=== PATIENT | female | born 1970 | race Caucasian/White ===

== ENCOUNTER 2016-12-08 17:10 | Emergency (ER) | payer OTHER ==
[~2016-12-08] VITALS: Ht 176.5 cm; Wt 78.1 kg
[~2016-12-08 17:10] MED LIST: IBUP600T44 PO; OXYC-57 PO; [UNRECOGNIZED DRUG - OTHER]
[2016-12-08 17:17] VITALS: TEMP 36.7; Ht 176.5 cm; Wt 78.1 kg
[2016-12-08] MEDS ORDERED: SODIUM CHLORIDE 0.9% 1000ML 1,000 ML IV STA (17:59)
[2016-12-08] MEDS ORDERED: OPTIRAY 320 IV PRN (18:15)
[2016-12-08 18:28] LABS: BASO % 0.3 %; BASO ABS # 0.02 K/uL (0-0.2); COMPLETE YES; HEMATOCRIT 40.6 % (37-47); IG% 0.3 %; LYMPH % 17.8 %; LYMPH ABS # 1.35 K/uL (1.2-3.4); MEAN CELL VOLUME 83.4 fL (80-100); MEAN CORPUSCULAR HEMOGLOBIN 28.1 pg (25-34); MEAN CORPUSCULAR HGB CONC 33.7 g/dl (32-36); MEAN PLATELET VOLUME 10.2 fL (7.4-10.4); NEUT % 71.6 %; PLATELET COUNT 208 K/uL (130-400); RED BLOOD COUNT 4.87 M/uL (4.2-5.4); WHITE BLOOD COUNT 7.59 K/uL (4.8-10.8)
[2016-12-08 18:45] LABS: BUN/CREATININE RATIO 9.9 (10-20); CALCIUM 8.9 mg/dl (8.5-10.1); CREATININE 0.87 mg/dl (0.60-1.20); POTASSIUM 3.5 mmol/L (3.5-5.1)
[2016-12-08 19:09] LABS: URINE APPEARANCE CLEAR (CLEAR); URINE BILIRUBIN NEG (NEG); URINE COLOR YELLOW; URINE NITRITE NEG (NEG); URINE PH 5.5 (4.5-7.5); URINE SPECIFIC GRAVITY 1.021 (1.000-1.030); UROBILINOGEN NEG (NEG)
[2016-12-08 19:16] LABS: MANUAL MICROSCOPIC REQUIRED? NO; REVIEW REQ? YES
--- NOTE | 2016-12-08 20:42 | DIAGNOSTIC IMAGING REPORT ---
ABDOMINAL ULTRASOUND, RIGHT LOWER QUADRANT HISTORY: Right upper quadrant ultrasound ABDOMINAL PAIN. COMPARISON: None. FINDINGS: The appendix is not identified. IMPRESSION: Nonvisualization of the appendix Electronically signed by: Juinor Blas M.D. 12/08/2016 8:41 PM Dictated Date/Time: 12/08/2016 8:38 PM
--- NOTE | 2016-12-08 20:45 | DIAGNOSTIC IMAGING REPORT ---
EXAMINATION: PELVIC ULTRASOUND CLINICAL HISTORY: SP partial hyster; eval ovaries COMPARISON STUDY: None FINDINGS: The uterus measured surgically absent. The endometrial stripe measured surgically absent. The right ovary measured 2.7 cm with normal vascular flow. The left ovary measured 3.5 cm with normal vascular flow. 1.4 cm complex cyst.. There is no ultrasonographic evidence of ovarian torsion. It should be noted that ovarian torsion can be present with normal Doppler ultrasonographic findings. Possible small residual component of the uterus adjacent to the internal cervical os. IMPRESSION: 1. 1.4 cm complex left ovarian cyst. Otherwise negative study status post partial hysterectomy. 2. note is made of a possible 2 cm soft tissue density slightly to the right of midline. Diagnostic considerations include bowel content, versus the less likely possibility of endometrioma. Electronically signed by: Junior Blas M.D. 12/08/2016 8:43 PM Dictated Date/Time: 12/08/2016 8:41 PM
--- NOTE | 2016-12-08 21:15 | DIAGNOSTIC IMAGING REPORT ---
ADDENDUM Report should indicate small bilateral complex ovarian cysts Electronically signed by: Junior Blas M.D. 12/08/2016 9:32 PM Dictated Date/Time: 12/08/2016 9:32 PM ORIGINAL REPORT ABDOMEN AND PELVIS CT WITH IV AND ORAL CONTRAST CT DOSE: 463.41 mGy.cm HISTORY: Pelvic pain ABDOMINAL PAIN/GI TECHNIQUE: Multiaxial CT images of the abdomen and pelvis were performed following the use of intravenous and oral contrast. COMPARISON STUDY: None. FINDINGS: Lung bases are clear. Liver spleen and pancreas are unremarkable. Kidneys enhance uniformly. Bowel pattern within the abdomen is nonobstructive. The appendix is identified and appears to be normal. Patient is status post hysterectomy. As 1.5 cm right ovarian cyst. No additional mass or collection is seen. The ultrasound finding in the midline appears to be artifactual. IMPRESSION: 1. 1.5 cm right ovarian cyst. 2. Normal appendix. 3. Study abdomen and pelvis is otherwise negative status post partial hysterectomy. Electronically signed by: Junior Blas M.D. 12/08/2016 9:14 PM Dictated Date/Time: 12/08/2016 9:11 PM
[2016-12-08 21:46] VITALS: BP 113/63; PULSE 46; O2SAT 98
--- NOTE | 2016-12-09 02:54 | EMERGENCY ROOM VISIT NOTE ---
ED Visit Note First contact with patient: 17:21 Chief Complaint: Abdominal pain. History of Present Illness: Ms. Mota is a 46 year-old white female who ambulates into the ED accompanied by her complaining of right lower quadrant abdominal pain. Historically patient reports she has no significant gastrointestinal disorders and is status post partial hysterectomy. Patient reports over the last 2 years she has been experiencing right lower quadrant pain every 1-2 months. Usually this pain is mild in intensity and self resolves. She reports she's had a previous CT of her abdomen and there was no appendicitis and no cause for her pain was found. Currently patient reports her pain started approximately 2 days ago. Since that time it has waxed and waned in intensity but it has been much more severe than previous episodes. She describes her pain as a sharp sensation and reports at its worse her discomfort was 8/10 and currently it is 5/10. Her pain intermittently radiates across the suprapubic area and into the left lower quadrant. She has not identified any aggravating or alleviating factors related to the pain. She has not taken any medications for pain prior to arrival at the hospital. Associated with her pain she reports she has been nauseated but has not vomited and she has had a decreased appetite. Patient denies fevers, chills, sweats, skin eruptions, skin color changes, upper respiratory tract symptoms, shortness of breath, chest pain, diarrhea, constipation, rectal bleeding, black/tarry stools, urinary symptoms, hematuria, vaginal bleeding, vaginal discharge, back/flank pain. Review of Systems: As noted above in history of present illness. All body systems were reviewed and found to be negative as noted above. Past Medical History: As previously noted and laminectomy. Current Medications: Patient denies. Allergies to Medications: Penicillin. Social History: Patient is currently employed; she lives and feels safe in her home environment; she denies tobacco use and admits to alcohol use. Physical Examination: Vital Signs: Date Time Temp Pulse Resp B/P (MAP) Pulse Ox O2 Delivery O2 Flow Rate FiO2 12/08/16 21:46 46 16 113/63 98 Room Air 12/08/16 20:23 46 16 95/61 99 Room Air 12/08/16 18:52 51 16 95/64 100 Room Air 12/08/16 17:17 36.7 97 18 128/81 95 Room Air GENERAL: 46-year-old female in mild distress due to pain, nontoxic-appearing, afebrile and hemodynamically stable. NEUROLOGICAL: Awake, alert and oriented to person, place and time. Answering questions appropriately and following commands. Normal gait. Good hand eye coordination. SKIN: Warm, dry and pink. No soft tissue eruptions or trauma noted. HEENT: Atraumatic and normocephalic. PERRL. Sclera white and conjunctiva pink. Oral cavity moist and pink. Pharynx is nonerythematous or edematous. Speech normal. No lymphadenopathy. Trachea midline. No jugular venous distention. BACK: No tenderness over the bony spine. No CVA tenderness. THORAX: Lungs sounds are clear to auscultation and equal bilaterally with symmetrical chest wall. No wheezing, rales or rhonchi. No crepitus, tenderness , subcutaneous air or deformities noted. HEART: Regular rate and rhythm. No gallops, rubs or murmurs are appreciated. ABDOMEN: Flat, soft with mild tenderness just inferior to McBurney's point. Positive bowel sounds in all quadrants. No guarding, rigidity or organomegaly. EXTREMITIES: Moves all extremities well on command and with purpose. All distal neurovascular statuses are intact and equal bilaterally. ED Course: Patient is assessed as noted above. Patient's medication list was reviewed. Laboratory Testing: Test 12/08/16 18:10 12/08/16 18:40 Range/Units White Blood Count 7.59 4.8-10.8 K/uL Red Blood Count 4.87 4.2-5.4 M/uL Hemoglobin 13.7 12.0-16.0 g/dL Hematocrit 40.6 37-47 % Mean Corpuscular Volume 83.4 80-100 fL Mean Corpuscular Hemoglobin 28.1 25-34 pg Mean Corpuscular Hemoglobin Concent 33.7 32-36 g/dl Platelet Count 208 130-400 K/uL Mean Platelet Volume 10.2 7.4-10.4 fL Neutrophils (%) (Auto) 71.6 % Lymphocytes (%) (Auto) 17.8 % Monocytes (%) (Auto) 8.0 % Eosinophils (%) (Auto) 2.0 % Basophils (%) (Auto) 0.3 % Neutrophils # (Auto) 5.44 1.4-6.5 K/uL Lymphocytes # (Auto) 1.35 1.2-3.4 K/uL Monocytes # (Auto) 0.61 0.11-0.59 K/uL Eosinophils # (Auto) 0.15 0-0.5 K/uL Basophils # (Auto) 0.02 0-0.2 K/uL RDW Standard Deviation 38.2 36.4-46.3 fL RDW Coefficient of Variation 12.6 11.5-14.5 % Immature Granulocyte % (Auto) 0.3 % Immature Granulocyte # (Auto) 0.02 0.00-0.02 K/uL Sodium Level 140 136-145 mmol/L Potassium Level 3.5 3.5-5.1 mmol/L Chloride Level 106 98-107 mmol/L Carbon Dioxide Level 24 21-32 mmol/L Anion Gap 10.0 3-11 mmol/L Blood Urea Nitrogen 9 7-18 mg/dl Creatinine 0.87 0.60-1.20 mg/dl Est Creatinine Clear Calc Drug Dose 85.0 ml/min Estimated GFR () 91.9 Estimated GFR (Non- 79.3 BUN/Creatinine Ratio 9.9 10-20 Random Glucose 91 70-99 mg/dl Calcium Level 8.9 8.5-10.1 mg/dl Total Bilirubin 0.6 0.2-1 mg/dl Direct Bilirubin 0.1 0-0.2 mg/dl Aspartate Amino Transf (AST/SGOT) 25 15-37 U/L Alanine Aminotransferase (ALT/SGPT) 24 12-78 U/L Alkaline Phosphatase 40 45-117 U/L Total Protein 7.0 6.4-8.2 gm/dl Albumin 4.0 3.4-5.0 gm/dl Lipase 193 73-393 U/L Urine Color YELLOW Urine Appearance CLEAR CLEAR Urine pH 5.5 4.5-7.5 Urine Specific [place] 1.021 1.000-1.030 Urine Protein NEG NEG Urine Glucose (UA) NEG NEG Urine Ketones 1+ NEG Urine Occult Blood 1+ NEG Urine Nitrite NEG NEG Urine Bilirubin NEG NEG Urine Urobilinogen NEG NEG Urine Leukocyte Esterase NEG NEG Urine WBC (Auto) 1-5 0-5 /hpf Urine RBC (Auto) 0-4 0-4 /hpf Urine Hyaline Casts (Auto) 1-5 0-5 /lpf Urine Epithelial Cells (Auto) 10-20 0-5 /lpf Urine Bacteria (Auto) NEG NEG Urine Crystals CALCIUM OXALATE NONE PRSENT Pelvic Ultrasound: Was reviewed by myself and read by the radiologist showing a 1.4 cm complex left ovarian cyst, status post partial hysterectomy, 2 cm soft tissue density slightly right of midline of questionable etiology including bowel content versus endometrioma. Appendix Ultrasound: Was reviewed by myself and read by the radiologist showing no visible appendix. Abdominal/Pelvic Contrast CT: Was reviewed by myself and read by the radiologist shows bilateral complex ovarian cysts, normal-appearing lung bases, spleen, liver, pancreas, kidneys, bowel and appendix. Radiologist note the possible mass from the ultrasound appeared to be stool in the colon. Patient was hydrated with normal saline; patient was offered pain medications and refused. Patient was reassessed multiple times during her stay in the emergency department. Patient's case was reviewed with Dr. Michelle; we agreed on diagnostic approach , treatment, disposition and plan. Patient was educated about today's findings and instructed on her treatment plan ; she verbalized understanding and agreement with this plan. Clinical Impression: Right lower quadrant abdominal pain. Decision-Making: Initially my differential diagnosis I considered appendicitis, ovarian cyst rupture, ovarian torsion, kidney stone, constipation, and other causes. Disposition: Patient discharged home in stable condition accompanied by her ; prior to departure she was reassessed and subjectively reported she was feeling better and rated her discomfort 2/10. Plan: Patient was encouraged to alternate ibuprofen and acetaminophen every 3 hours as needed for pain per Patient was encouraged to contact her PCP tomorrow and request follow-up care and treatment. Patient was encouraged return the ED for worsening/uncontrolled pain, fevers, vomiting or any new/concerning symptoms.
== END 2016-12-08 21:55 | disposition home or self-care (01) ==
LOC: C.EDB 17:11
DX: R10.31 Right lower quadrant pain (principal); Z90.711 Acquired absence of uterus with remaining cervical stump; Z98.890 Other specified postprocedural states; N83.201 Unspecified ovarian cyst, right side; N83.202 Unspecified ovarian cyst, left side

== ENCOUNTER → 2017-03-07 | Outpatient (CLI) | payer OTHER ==
--- NOTE | 2017-03-10 13:33 | MAMMOGRAPHY REPORT ---
BILATERAL DIGITAL SCREENING MAMMOGRAM TOMOSYNTHESIS WITH CAD: 03/07/2017 CLINICAL HISTORY: Routine screening. The patient reported to the technologist that she has had diffu se bilateral breast tenderness for approximately 2 weeks. TECHNIQUE: Breast tomosynthesis in addition to standard 2D mammography was performed. Current study was also evaluated with a Computer Aided Detection (CAD) system. COMPARISON: Comparison is made to exams dated: 08/10/2015 mammogram, 03/31/2015 mammogram, 12/08/2013 mammogram, 11/11/2012 mammogram, 07/08/2011 mammogram, and 06/25/2010 mammogram - [facility]. BREAST COMPOSITION: The tissue of both breasts is extremely dense, which lowers the sensitivity of m ammography. FINDINGS: There is a possible small cluster of calcifications within the left lower inner quadrant m iddle depth, for which spot magnification views are recommended for further evaluation. Additionally , there is an oval circumscribed 15 mm mass within the left upper outer quadrant, which likely repres ents a cyst although ultrasound is recommended for further evaluation. The remainder of both breasts are stable compared to prior exams, without suspicious masses, calcific ations, or areas of architectural distortion noted. IMPRESSION: ACR BI-RADS CATEGORY 0: INCOMPLETE EVALUATION: NEED ADDITIONAL IMAGING EVALUATION 1. Left breast calcifications and left breast mass, for which additional imaging evaluation is recomm ended. 2. The patient also reported diffuse bilateral breast tenderness for 2 weeks. Recommend clinical fo llow-up. The patient will be called to schedule an appointment. Approximately 10% of breast cancers are not detected with mammography. A negative mammographic report should not delay biopsy if a clinically suggestive mass is present. Sarahy Santos M.D. ah/:03/07/2017 17:08:14 Hide Inspector: Perla LARA(Zohra)(M), [facility] letter sent: Addl Imaging 0 BI-RADS Code: ACR BI-RADS Category 0: Incomplete Evaluation: Need Additional Imaging Evaluation
== END | disposition home or self-care (01) ==
LOC: C.MAMM 07:26
PROVIDERS: ATTEND Obstetrics & Gynecology
DX: Z12.31 Encounter for screening mammogram for malignant neoplasm of breast (principal); R92.1 Mammographic calcification found on diagnostic imaging of breast; N63 Unspecified lump in breast; N64.4 Mastodynia

== ENCOUNTER → 2017-03-14 | Outpatient (CLI) | payer OTHER ==
--- NOTE | 2017-03-14 14:55 | MAMMOGRAPHY REPORT ---
UNILATERAL LEFT DIGITAL DIAGNOSTIC MAMMOGRAM AND TARGETED LEFT ULTRASOUND: 03/14/2017 CLINICAL HISTORY: Callback from screening mammogram for left breast calcifications and left breast ma ss. TECHNIQUE: Spot magnification left CC and ML views were obtained. COMPARISON: Comparison is made to exams dated: 03/07/2017 mammogram, 08/10/2015 mammogram, 03/31/2015 mammogram, 12/08/2013 mammogram, 11/11/2012 mammogram, and 07/08/2011 mammogram - [facility]. BREAST COMPOSITION: The tissue of the left breast is extremely dense, which lowers the sensitivity o f mammography. FINDINGS: Spot magnification views of the left breast demonstrate a small 2 mm cluster of calcificat ions in the left lower inner quadrant. The calcifications are mildly heterogeneous in morphology and appear new compared to prior exams. Given that the calcifications are new, they are indeterminant a nd stereotactic biopsy is recommended for further evaluation. Targeted ultrasound was performed of the area of the circumscribed mass seen on the recent screening mammogram. In the left breast at 1:00 periareolar region, there is an oval anechoic circumscribed ma ss which measures 1.2 x 1.1 x 0.9 cm. This corresponds with the circumscribed mammographic mass and is consistent with a benign cyst. IMPRESSION: ACR BI-RADS CATEGORY 4: SUSPICIOUS, TARGETED ULTRASOUND ACR BI-RADS CATEGORY 4: SUSPICIO US 1. New small 2 mm cluster of calcifications in the left lower inner quadrant. The calcifications ar e indeterminate and stereotactic biopsy is recommended for further evaluation. 2. Benign 1.2 cm cyst in the left 1:00 breast on ultrasound, which corresponds with a circumscribed mammographic mass. A phone call was made to the physician's office to confirm faxed results were received. The patient has been verbally notified of the results. She tentatively scheduled the biopsy before leaving the [facility]. Approximately 10% of breast cancers are not detected with mammography. A negative mammographic report should not delay biopsy if a clinically suggestive mass is present. Sarahy Santos M.D. /:03/14/2017 09:50:17 Library Technology Instructor: Alba LARA(Zohra)([place]), [facility] letter sent: Abnormal 4/5 BI-RADS Code: ACR BI-RADS Category 4: Suspicious Ultrasound BI-RADS: ACR BI-RADS Category 4: Suspici ous
== END | disposition home or self-care (01) ==
LOC: C.MAMM 09:08
PROVIDERS: ATTEND Obstetrics & Gynecology
DX: R92.0 Mammographic microcalcification found on diagnostic imaging of breast (principal); N60.02 Solitary cyst of left breast

== ENCOUNTER → 2017-04-09 | Outpatient (CLI) | payer OTHER ==
--- NOTE | 2017-04-09 09:42 | Discharge Instructions ---
Discharge Instructions Procedure Procedure Date: Apr 09, 2017. Reason for visit: Left Calcifications. Discharge Discharge Date: Apr 09, 2017. Discharge Diagnosis: status post breast biopsy Instructions Activity Recommendations: Additional Limitations (see below) Return to School/Work: no limitations Recommended Home Diet: No Limitations Provider Instructions: ACTIVITY RECOMMENDATIONS: * No lifting, pushing, pulling or exercising the affected side for three days. RETURN TO SCHOOL/WORK: * You may return to work/school after the procedure, but do not perform any strenuous activities for 24 to 48 hours. MEDICATIONS: * Tylenol (two 325 mg) every four to six hours if needed for mild pain (if not allergic to Tylenol). DIET: * Resume previous diet. SPECIAL CARE INSTRUCTIONS: * Keep biopsy site dry for 24 hours. May shower after 24 hours, but do not soak (bathe) incision. * May remove Tegaderm (plastic patch) tomorrow AFTER showering. * Leave the steri-strips on for one week. Allow the steri-strips to fall off by themselves. If not off after one week, you may remove them. You may place a Bandaid crosswise over the strips, if desired. * Apply ice 10 minutes on and 10 minutes off as needed. * Wear a bra at bedtime to sleep more comfortably for 2-3 days. * Your referring physician should have the results after approximately 5 to 7 business days. * Call for unusual bleeding, fever, drainage, etc or if you have any questions call during normal business hours or after hours call Dr Santos, . FOLLOW UP VISIT: Follow-up with Referring Physician as scheduled. Allergies Coded Allergies: Penicillins (Verified Allergy, Unknown, *, 12/08/16) CHILDHOOD REACTION UNKNOWN [facility] Recommendations: Call your doctor if: * Temperature above 101 degrees * Pain not relieved by pain medicine ordered * There is increased drainage or redness from any incision * You have any unanswered questions or concerns. Your Doctors Instructions noted above were prepared by provider Sarahy Santos. Patient Signature Section: Patient Instructions Signature Page Jenna Mota Patient (or Guardian) Signature/Date: I have read and understand the instructions given to me by my caregivers. Caregiver/RN/Doctor Signature/Date: The above-named patient and/or guardian has received patient instructions on this date. + Original Patient Signature Page (only) stays with chart. Please make copy for patient.
--- NOTE | 2017-04-09 09:44 | Discharge Instructions ---
Discharge Instructions Procedure Procedure Date: Apr 09, 2017. Reason for visit: Left Calcifications. Discharge Discharge Date: Apr 09, 2017. Discharge Diagnosis: status post breast biopsy Instructions Activity Recommendations: Additional Limitations (see below) Return to School/Work: no limitations Recommended Home Diet: No Limitations Provider Instructions: ACTIVITY RECOMMENDATIONS: * No lifting, pushing, pulling or exercising the affected side for three days. RETURN TO SCHOOL/WORK: * You may return to work/school after the procedure, but do not perform any strenuous activities for 24 to 48 hours. MEDICATIONS: * Tylenol (two 325 mg) every four to six hours if needed for mild pain (if not allergic to Tylenol). DIET: * Resume previous diet. SPECIAL CARE INSTRUCTIONS: * Keep biopsy site dry for 24 hours. May shower after 24 hours, but do not soak (bathe) incision. * May remove Tegaderm (plastic patch) tomorrow AFTER showering. * Leave the steri-strips on for one week. Allow the steri-strips to fall off by themselves. If not off after one week, you may remove them. You may place a Bandaid crosswise over the strips, if desired. * Apply ice 10 minutes on and 10 minutes off as needed. * Wear a bra at bedtime to sleep more comfortably for 2-3 days. * Your referring physician should have the results after approximately 5 to 7 business days. * Call for unusual bleeding, fever, drainage, etc or if you have any questions call during normal business hours or after hours call Dr Santos, . FOLLOW UP VISIT: Follow-up with Referring Physician as scheduled. Allergies Coded Allergies: Penicillins (Verified Allergy, Unknown, *, 12/08/16) CHILDHOOD REACTION UNKNOWN [facility] Recommendations: Call your doctor if: * Temperature above 101 degrees * Pain not relieved by pain medicine ordered * There is increased drainage or redness from any incision * You have any unanswered questions or concerns. Your Doctors Instructions noted above were prepared by provider Sarahy Santos. Patient Signature Section: Patient Instructions Signature Page Jenna Mota Patient (or Guardian) Signature/Date: I have read and understand the instructions given to me by my caregivers. Caregiver/RN/Doctor Signature/Date: The above-named patient and/or guardian has received patient instructions on this date. + Original Patient Signature Page (only) stays with chart. Please make copy for patient.
--- NOTE | 2017-04-09 14:23 | MAMMOGRAPHY REPORT ---
STEREOTACTIC GUIDED BIOPSY LEFT BREAST: 04/09/2017 CLINICAL HISTORY: Indeterminate calcifications in the left lower inner quadrant. PATIENT CONSENT: The procedure, risks, benefits, and alternatives of stereotactic biopsy with clip pl acement were discussed with the patient, and verbal and written consent was obtained. A timeout was performed immediately prior to the procedure. PROCEDURE DESCRIPTION: With stereotactic guidance, aseptic technique, and lidocaine as a local anesth etic (1% lidocaine to anesthetize the skin and 1% lidocaine with epinephrine to anesthetize the deepe r tissues), the calcifications of concern in the left lower inner quadrant were sampled multiple time s with a 9-gauge vacuum-assisted biopsy needle (Adrenaline Mobility). The path of approach was caudocranial. The specimen radiograph demonstrates calcifications to be present in the samples. A metallic marke r clip was placed at the biopsy site. This was confirmed on postprocedure mammograms. Direct pressu re was applied at the biopsy site and hemostasis was readily achieved. The patient tolerated the pro cedure without complication. She was given wound care instructions. COMPARISON: Comparison is made to exams dated: 03/14/2017 ultrasound, 03/14/2017 mammogram, 08/10/2015 ultrasound, and 08/10/2015 mammogram - [facility]. IMPRESSION: STEREOTACTIC GUIDED BIOPSY Stereotactic biopsy of indeterminate calcifications in the left lower inner quadrant, with clip place ment. The patient will receive pathology results from her referring provider. Sarahy Santos M.D. /:04/09/2017 09:43:34 Boathouse Keeper: Idalia Carroll, [facility]
--- NOTE | 2017-04-09 14:26 | MAMMOGRAPHY REPORT ---
UNILATERAL LEFT DIGITAL DIAGNOSTIC MAMMOGRAM: 04/09/2017 CLINICAL HISTORY: Status post left breast stereotactic biopsy. TECHNIQUE: Postprocedural left CC and ML views were obtained. COMPARISON: Comparison is made to exams dated: 03/14/2017 ultrasound, 03/14/2017 mammogram, 03/07/2017 mammogram, 08/10/2015 ultrasound, 08/10/2015 mammogram, and 03/31/2015 mammogram - [facility]. BREAST COMPOSITION: The tissue of the left breast is extremely dense, which lowers the sensitivity o f mammography. FINDINGS: A new biopsy marker clip is seen at the site of the biopsied calcifications in the left lo wer inner quadrant. No significant postbiopsy hematoma is seen. IMPRESSION: POST PROCEDURE IMAGING FOR MARKER PLACEMENT New biopsy marker clip status post left breast stereotactic biopsy. Pathology results are pending. Approximately 10% of breast cancers are not detected with mammography. A negative mammographic report should not delay biopsy if a clinically suggestive mass is present. Sarahy Santos M.D. ah/:04/09/2017 09:51:37 Forest Ecologist: Idalia Carroll, [facility] BI-RADS Code: Post Procedure Imaging For Marker Placement
== END | disposition home or self-care (01) ==
LOC: C.MAMM 09:10
PROVIDERS: ATTEND Obstetrics & Gynecology
DX: R92.0 Mammographic microcalcification found on diagnostic imaging of breast (principal); N60.92 Unspecified benign mammary dysplasia of left breast

== ENCOUNTER 2017-05-30 03:33 | Emergency (ER) | payer OTHER ==
[~2017-05-30] VITALS: Ht 175.3 cm; Wt 75.4 kg
[2017-05-30 03:35] VITALS: TEMP 36.6; Ht 175.3 cm; Wt 75.4 kg
[2017-05-30] MEDS ORDERED: SODIUM CHLORIDE 0.9% 500ML 500 ML IV STA (04:00)
[2017-05-30] MEDS ORDERED: KETOROLAC TROMETHAMINE 30 MG/ML VIAL IV STA (04:00)
[2017-05-30] MEDS ORDERED: ONDANSETRON 8 MG/54 ML D5W IV STA (04:00)
[2017-05-30] MEDS ORDERED: ONDANSETRON INJ 8 MG in DEXTROSE 5% 50ML 50 ML IV STA (04:16)
[2017-05-30 04:42] LABS: BASO % 0.2 %; BASO ABS # 0.02 K/uL (0-0.2); COMPLETE YES; EOS % 0.3 %; HEMATOCRIT 37.8 % (37-47); IG% 0.3 %; LYMPH % 7.5 %; LYMPH ABS # 0.86 K/uL (1.2-3.4); MEAN CELL VOLUME 80.9 fL (80-100); MEAN CORPUSCULAR HEMOGLOBIN 28.9 pg (25-34); MEAN CORPUSCULAR HGB CONC 35.7 g/dl (32-36); MONO % 4.9 %; NEUT % 86.8 %; PLATELET COUNT 210 K/uL (130-400); RED BLOOD COUNT 4.67 M/uL (4.2-5.4); WHITE BLOOD COUNT 11.43 K/uL (4.8-10.8)
[2017-05-30 04:51] LABS: BUN/CREATININE RATIO 16.7 (10-20); CALCIUM 8.8 mg/dl (8.5-10.1); CREATININE 0.7 mg/dl (0.60-1.20); POTASSIUM 3.7 mmol/L (3.5-5.1)
[2017-05-30 04:54] LABS: URINE APPEARANCE CLEAR (CLEAR); URINE BILIRUBIN NEG (NEG); URINE COLOR YELLOW; URINE NITRITE NEG (NEG); URINE SPECIFIC GRAVITY 1.021 (1.000-1.030); UROBILINOGEN NEG (NEG); ZZUR CULT IF INDIC CLEAN CATCH NO
[2017-05-30 05:03] LABS: MANUAL MICROSCOPIC REQUIRED? NO; REVIEW REQ? NO
[2017-05-30] MEDS ORDERED: FENTANYL CITRATE INJ 50 MCG/1 ML 2 ML VIAL IV STA (05:22)
--- NOTE | 2017-05-30 05:25 | EMERGENCY ROOM VISIT NOTE ---
History Report prepared by Shayy: Ana Cristina Spear Under the Supervision of: Dr. Kelley Matthews D.O. First contact with patient: 03:42 Chief Complaint: ABDOMINAL PAIN Stated Complaint: LWR RT ABDOMINAL PAIN-PELVIC PAINS History of Present Illness The patient is a 46 year old female who presents to the Emergency Room with complaints of waxing and waning RLQ abdominal pain starting 0 yesterday. She started having some pain 2 days ago. It worsened today around 0. The patient has had 3-4 episodes of this pain in the past. She describes the pain as sharp and severe. The pain is moving lower down into her pelvis. The pain is shooting up her abdomen. She is alternating between feeling hot and cold. She has not checked her temperature. She has been feeling nauseous. She did vomit one time tonight. She did not notice any blood. Her mouth feels dry like she is dehydrated. She denies any vaginal discharge or pain during intercourse. She is unsure of any pattern or triggers to these episodes. She had a normal CT and colonoscopy in the past. Pelvic US showed a cyst on each ovary. She has a history of partial hysterectomy. She denies any other abdominal surgeries. She was told that she might be having gas. She notes she has tried cutting dairy out of her diet. She had some cereal the other morning. She denies any family history of celiac or inflammatory bowel disease. Review of EMR showed a visit the end of November of this year with CAT scan abdomen and pelvis as well as pelvic ultrasound. Source of History: patient Onset: 1829 yesterday Position: abdomen (RLQ) Symptom Intensity: severe Quality: sharp Timing: waxes/wanes Associated Symptoms: + chills, + nausea, + vomiting Note: Pt reports dry mouth, vaginal discharge, pain during intercourse. Review of Systems See HPI for pertinent positives & negatives. A total of 10 systems reviewed and were otherwise negative. Past Medical & Surgical Surgical Problems: (1) S/P partial hysterectomy Family History No pertinent family history stated. Social History Smoking Status: Never Smoker Marital Status: Occupation Status: employed Current/Historical Medications No Active Prescriptions or Reported Meds Allergies Coded Allergies: Penicillins (Verified Allergy, Unknown, *, 05/30/17) CHILDHOOD REACTION UNKNOWN Physical Exam Vital Signs Date Time Temp Pulse Resp B/P (MAP) Pulse Ox O2 Delivery O2 Flow Rate FiO2 05/30/17 07:29 57 16 91/49 97 05/30/17 05:51 51 16 103/69 97 Room Air 05/30/17 03:35 36.6 65 20 169/83 100 Room Air Physical Exam GENERAL: alert, uncomfortable appearing, well nourished, mild distress, non- toxic EYE EXAM: normal conjunctiva, PERRL and EOM's grossly intact OROPHARYNX: no exudate, no erythema, lips, buccal mucosa, and tongue normal and mucous membranes are moist NECK: supple, no nuchal rigidity, no adenopathy, non-tender LUNGS: Clear to auscultation. Normal chest wall mechanics HEART: no murmurs, S1 normal and S2 normal ABDOMEN: abdomen soft, non-tender, normo-active bowel sounds, no masses, no rebound or guarding. BACK: Back is symmetrical on inspection and there is no deformity, no midline tenderness, no CVA tenderness. SKIN: no rashes and no bruising UPPER EXTREMITIES: upper extremities are grossly normal. LOWER EXTREMITIES: No pitting edema. NEURO EXAM: Normal sensorium, cranial nerves II-XII grossly intact, normal speech, no gross weakness of arms, no gross weakness of legs. Medical Decision & Procedures ER Provider Diagnostic Interpretation: Radiology results have been interpreted by the [facility] radiologist and reviewed by me. US Pelvic/Endovag: Hysterectomy. Nonvascular lesion to the right of the cervix measuring about 1.4 cm maximum dimension. Possibly complex nabothian cyst versus other cervical lesion. 2.5 cm complex lesion with possible echogenic polypoid component internally. Measures about 2.5 cm maximum dimension. It appears vascular. Lies to the right of the cervical cuff but does not appear to move with cervix during compressions. Cervical mass is not excluded. Right ovarian cyst measuring about 4.1 cm maximum dimension. Ovarian follicles. Blood flow seen to bilateral ovaries. Laboratory Results 05/30/17 04:00 Red Blood Count 4.67, Mean Corpuscular Volume 80.9, Mean Corpuscular Hemoglobin 28.9, Mean Corpuscular Hemoglobin Concent 35.7, Mean Platelet Volume 10.0, Neutrophils (%) (Auto) 86.8, Lymphocytes (%) (Auto) 7.5, Monocytes (%) (Auto) 4.9, Eosinophils (%) (Auto) 0.3, Basophils (%) (Auto) 0.2, Neutrophils # (Auto) 9.93, Lymphocytes # (Auto) 0.86, Monocytes # (Auto) 0.56, Eosinophils # (Auto) 0.03, Basophils # (Auto) 0.02 05/30/17 04:00 Test 05/30/17 04:00 White Blood Count 11.43 K/uL (4.8-10.8) Red Blood Count 4.67 M/uL (4.2-5.4) Hemoglobin 13.5 g/dL (12.0-16.0) Hematocrit 37.8 % (37-47) Mean Corpuscular Volume 80.9 fL (80-100) Mean Corpuscular Hemoglobin 28.9 pg (25-34) Mean Corpuscular Hemoglobin Concent 35.7 g/dl (32-36) Platelet Count 210 K/uL (130-400) Mean Platelet Volume 10.0 fL (7.4-10.4) Neutrophils (%) (Auto) 86.8 % Lymphocytes (%) (Auto) 7.5 % Monocytes (%) (Auto) 4.9 % Eosinophils (%) (Auto) 0.3 % Basophils (%) (Auto) 0.2 % Neutrophils # (Auto) 9.93 K/uL (1.4-6.5) Lymphocytes # (Auto) 0.86 K/uL (1.2-3.4) Monocytes # (Auto) 0.56 K/uL (0.11-0.59) Eosinophils # (Auto) 0.03 K/uL (0-0.5) Basophils # (Auto) 0.02 K/uL (0-0.2) RDW Standard Deviation 37.2 fL (36.4-46.3) RDW Coefficient of Variation 12.8 % (11.5-14.5) Immature Granulocyte % (Auto) 0.3 % Immature Granulocyte # (Auto) 0.03 K/uL (0.00-0.02) Urine Color YELLOW Urine Appearance CLEAR (CLEAR) Urine pH 7.0 (4.5-7.5) Urine Specific [place] 1.021 (1.000-1.030) Urine Protein NEG (NEG) Urine Glucose (UA) NEG (NEG) Urine Ketones 2+ (NEG) Urine Occult Blood 1+ (NEG) Urine Nitrite NEG (NEG) Urine Bilirubin NEG (NEG) Urine Urobilinogen NEG (NEG) Urine Leukocyte Esterase NEG (NEG) Urine WBC (Auto) 0 /hpf (0-5) Urine RBC (Auto) 5-10 /hpf (0-4) Urine Hyaline Casts (Auto) 1-5 /lpf (0-5) Urine Epithelial Cells (Auto) 10-20 /lpf (0-5) Urine Bacteria (Auto) NEG (NEG) Anion Gap 7.0 mmol/L (3-11) Est Creatinine Clear Calc Drug Dose 103.9 ml/min Estimated GFR () 119.6 Estimated GFR (Non- 103.2 BUN/Creatinine Ratio 16.7 (10-20) Calcium Level 8.8 mg/dl (8.5-10.1) Laboratory results per my review. Medications Administered Medications (Trade) Dose Ordered Sig/Silvio Route Start Time Stop Time Status Last Admin Dose Admin Ketorolac Tromethamine (Toradol Inj) 30 mg NOW STAT IV 05/30/17 04:00 05/30/17 04:01 DC 05/30/17 04:00 30 MG Sodium Chloride 500 ml @ 999 mls/hr Q31M STAT IV 05/30/17 04:00 05/30/17 04:30 DC 05/30/17 04:00 999 MLS/HR Ondansetron HCl (ZOFRAN ODT 4MG Home Pack) 1 homepack UD ONCE PO 05/30/17 07:30 05/30/17 07:31 DC 05/30/17 07:26 1 HOMEPACK ED Course 0342: The patient was evaluated in room B12B. A complete history and physical exam was performed. 0400: NSS 500 ml @ 999 mls/hr IV, Toradol Inj 30 mg IV. 0430: I reevaluated the patient. 0645: Upon reevaluation, the patient is feeling better. I discussed the findings and the treatment plan with the patient. She verbalizes agreement and understanding. She was discharged home. Medical Decision Differential diagnoses includes but is not limited to gastritis, peptic ulcer disease, GERD, gallbladder disease, pancreatitis, small bowel obstruction, acute coronary syndrome, pericarditis, ischemic bowel, irritable bowel disease, irritable bowel syndrome, appendicitis, diverticulitis, malignancy, hernia, urinary tract infection, torsion, perforation, trauma, infectious. Patient well-appearing here and pain improved following administration of Toradol and Zofran. Patient given small additional pain medication due to ultrasound. Review of visit from earlier this year was unremarkable. Given evolution of patient's symptoms and reassuring labs, I do not suspect acute GI or pathology. No evidence of UTI, pyelonephritis, and exam not consistent with kidney stone despite small hematuria noted. This was discussed with the patient and need for follow-up. Doubt bowel obstruction, mesenteric ischemia, perforation, GI bleed, I do not suspect acute appendicitis, diverticulitis, colitis. Patient now on pelvic ultrasound with a larger right-sided ovarian cysts which may be the cause of the patient's recurrent pain. Prior ultrasound showed a much smaller left-sided ovarian cyst. No evidence of torsion. No history of STDs and patient tonight was relationship, do not suspect PID/TOA/ acute STD infection. Discussed with patient close follow-up with [facility], symptoms to watch and return for, pelvic rest, avoidance of strenuous activity, continue close monitoring of diet and bowel movements, possible etiology of hematuria, she verbalized understanding was agreeable with plan. Did not feel patient required repeat CAT scan of the abdomen and pelvis to additional radiation exposure and reassuring labs. Very slight leukocytosis likely related to stress reaction from pain and episode of vomiting. I do not suspect bacteremia/sepsis, do not suspect vascular etiology. Medication Reconcilliation Current Medication List: was personally reviewed by me Blood Pressure Screening Patient's blood pressure: Normal blood pressure Blood pressure disposition: Did not require urgent referral Impression Primary Impression: Pelvic pain Additional Impressions: Ovarian cyst Cervical cyst Hematuria Scribe Attestation The scribe's documentation has been prepared under my direction and personally reviewed by me in its entirety. I confirm that the note above accurately reflects all work, treatment, procedures, and medical decision making performed by me. Departure Information Dispostion Home / Self-Care Prescriptions No Active Prescriptions or Reported Meds Referrals No Doctor, Assigned (PCP) Patient Instructions My [facility] Additional Instructions You may use Tylenol and ibuprofen as needed for pain. Please follow up with OB/ [facility] regarding the ultrasound findings and your pelvic pain. Please tell them that you were found to have an ovarian cyst, a cervical lesion thought to be a nabothian cyst, as well as a small abnormality adjacent to the cervical cuff that was also previously noted on prior ultrasound. They may one additional imaging such as a repeat ultrasound. Please have your [facility] or family doctor also recheck your urine as there was a small amount of blood noted and does not appear to be an related to an infection. If you develop worsening pain, vomiting, fevers or chills, difficulty urinating or noticed a change in your urine, 12 a change in bowel movements, back pain, or you've any other new concerns, please return the emergency room. Problem Qualifiers Additional Impressions: Ovarian cyst Laterality: right Qualified Codes: N83.201 - Unspecified ovarian cyst, right side Hematuria Hematuria type: asymptomatic microscopic Qualified Codes: R31.21 - Asymptomatic microscopic hematuria
--- NOTE | 2017-05-30 07:02 | DIAGNOSTIC IMAGING REPORT ---
TRANSVAG-FEMALE PELVIS HISTORY: 46 years-old Female pelvic pain, hx cysts acute pelvic pain with history of ovarian cysts. Acute right lower quadrant abdominal pain for 2 days. Prior hysterectomy. COMPARISON: CT abdomen and pelvis 12/08/2016, pelvic ultrasound 12/08/2016 TECHNIQUE: Multiple real-time sonographic images of the deep pelvic structures were obtained transabdominally and transvaginally assessing grayscale appearance, color and spectral flow FINDINGS: TRANSABDOMINAL: Uterus is surgically absent. Cystic lesion within the right ovary measures 4.1 x 2.7 x 3.8 cm. The right ovary measures 4.6 x 2.9 x 4.2 cm and demonstrates arterial inflow. TRANSVAGINAL: There is a complex slightly hypoechoic structure in the region of the cervix, 1.2 x 0.9 x 1.4 cm which may reflect a complex nabothian cyst. Additionally, there is a complex mixed echogenicity ovoid structure which appears to demonstrate internal vascularity with a central cystic component with an area of echogenic mural nodularity with the mural nodularity component measuring 0.4 cm with internal vascularity. The lesion overall measures up to 2.5 x 1.7 x 2.3 cm. This lesion lies to the right of the cervical cuff. On prior study dated 12/08/2016, this lesion measured up to 2.4 x 1.6 x 1.9 cm. The cystic component appears to progressed and the mural nodularity was not seen on comparison. Left ovary measures 3.4 x 1.7 x 2.2 cm and demonstrates arterial inflow. There is no significant free pelvic fluid. IMPRESSION: 1. Prior hysterectomy. 2. Right ovarian cyst, 4.6 cm. No evidence of ovarian torsion. 3. Mixed echogenicity cystic and solid lesion with internal vascularity adjacent to the cervix measuring up to 2.5 cm appears similar in size from comparison study 12/08/2016, however the internal cystic component appears to have progressed and the mural nodularity was not seen on comparison. This is again nonspecific and would be atypical for an endometrioma and is suspicious for possible cervical neoplasm. Surgical consultation recommended. 4. 1.2 cm nonvascular lesion of the right cervix measuring up to 1.2 cm may reflect a complex nabothian cyst. The above report was generated using voice recognition software. It may contain grammatical, syntax or spelling errors. Electronically signed by: Augustus Sheikh M.D. 05/30/2017 7:01 AM Dictated Date/Time: 05/30/2017 6:37 AM
[2017-05-30 07:29] VITALS: BP 91/49; PULSE 57; O2SAT 97
[2017-05-30] MEDS ORDERED: ONDANSETRON HOME PACK 4MG OD TAB PO ONE (07:30)
== END 2017-05-30 07:30 | disposition home or self-care (01) ==
LOC: C.EDB 03:34
DX: R10.2 Pelvic and perineal pain (principal); N88.8 Other specified noninflammatory disorders of cervix uteri; N83.201 Unspecified ovarian cyst, right side; R31.21 Asymptomatic microscopic hematuria

== ENCOUNTER 2017-08-16 17:40 | Observation (INO) | payer OTHER ==
[~2017-08-16] VITALS: Ht 175.3 cm; Wt 77.0 kg
[2017-08-16] MEDS ORDERED: KETOROLAC TROMETHAMINE 15 MG/ML VIAL IV STA (18:16)
[2017-08-16] MEDS ORDERED: ONDANSETRON INJ 2 MG/ML 2 ML VIAL IV STA (18:16)
[2017-08-16] MEDS ORDERED: KETOROLAC TROMETHAMINE 30 MG/ML VIAL ONE (18:24)
--- NOTE | 2017-08-16 18:24 | EMERGENCY ROOM VISIT NOTE ---
History Report prepared by Shayy: Jori Seo Under the Supervision of: Dr. Parminder Lopez M.D. First contact with patient: 17:44 Chief Complaint: ABDOMINAL PAIN Stated Complaint: VOMITING, RT SIDE CRAMPING History of Present Illness The patient is a 47 year old female who presents to the Emergency Room with complaints of constant lower right abdominal pain beginning at 1400 today. The patient states that her symptoms feel like a pressure, and has been ongoing for weeks but has worsened significantly today. She reports that she has been taking Tylenol and ibuprofen before her symptoms started, but states that when she took Tylenol and ibuprofen today, there was no relief of her symptoms. She notes that her current pain feels similar to her pain in May when she was diagnosed with an ovarian cyst. She also complains of vomiting x3. She denies any fevers, blood in her vomit, melena, bloody urine, unusual vaginal discharge/ bleeding, and pain with urination. Source of History: patient Onset: 1400 today Position: abdomen (RLQ) Quality: pressure Associated Symptoms: + vomiting, No fevers, No melena Note: She denies any blood in her vomit, blood in her urine, pain with urination, and unusual vaginal discharge/bleeding. Review of Systems See HPI for pertinent positives and negatives. A total of ten systems were reviewed and were otherwise negative. Past Medical & Surgical Medical Problems: (1) Appendicolith (2) RLQ abdominal pain Surgical Problems: (1) S/P partial hysterectomy Family History Diabetes mellitus FH: cancer Hypertension Social History Smoking Status: Never Smoker Marital Status: Housing Status: lives with family Occupation Status: employed Current/Historical Medications No Active Prescriptions or Reported Meds Allergies Coded Allergies: Penicillins (Verified Allergy, Unknown, *, 08/16/17) CHILDHOOD REACTION UNKNOWN Physical Exam Vital Signs Date Time Temp Pulse Resp B/P (MAP) Pulse Ox O2 Delivery O2 Flow Rate FiO2 08/16/17 23:01 36.9 08/16/17 22:07 56 20 110/68 98 Room Air 08/16/17 20:10 78 20 99/49 98 Room Air 08/16/17 17:41 36.5 62 18 168/91 98 Room Air Physical Exam Physical Exam GENERAL: She is oriented to person, place, and time. She appears well- developed and well-nourished. She does not appear distressed. HENT: Exam performed. Head: Normocephalic and atraumatic. Right Ear: External ear normal. No mastoid tenderness. Left Ear: External ear normal. No mastoid tenderness. Mouth/Throat: The oropharynx is clear and moist. No trismus in the jaw. No dental abscesses or uvula swelling. No oropharyngeal exudate or tonsillar abscesses. EYES: Conjunctivae and EOM are normal. Pupils are equal, round, and reactive to light. Right eye exhibits no discharge. Left eye exhibits no discharge. No scleral icterus. NECK: Normal range of motion. Neck supple. No JVD present. No spinous process tenderness present. No carotid bruit present. No rigidity. No tracheal deviation and normal range of motion present. No Brudzinski's sign and no Kernig 's sign noted. CV: Normal rate, regular rhythm, normal heart sounds and intact distal pulses. There is no peripheral edema. Palpable radial pulses bue. PULM/CHEST: Effort normal and breath sounds normal. No respiratory distress. No stridor. She has no wheezes. She has no rales. Chest Wall: She exhibits no tenderness. ABD: The abdomen is soft. Bowel sounds are normal. She has no distension. No mass is present. There is no rebound, no guarding, no Hartmann's sign. Rovsig negative Pain to palpation of RLQ. MUSC/SKEL: Normal range of motion. There is no peripheral edema, tenderness or deformity. LYMPH: No cervical adenopathy. NEURO: She is alert and oriented to person, place, and time. She has normal strength. No cranial nerve deficit or sensory deficit. Coordination and gait normal. GCS eye subscore is 4. GCS verbal subscore is 5. GCS motor subscore is 6. Cerebellar tests wnl. SKIN: Skin is warm and dry. She is not diaphoretic. PSYCH: She has a normal mood and affect. Her behavior is normal. Judgment and thought content normal. Medical Decision & Procedures ER Provider Diagnostic Interpretation: Radiology results as stated below per my review and radiologist interpretation: PELVIC COMPLETE NON OB, TRANSVAG-FEMALE PELVIS FINDINGS: Uterus: Surgically absent. Focal masslike hypoechoic round nodule at the vaginal cuff, measuring 1.4 x 1.2 x 1.4 cm. Additionally, along the right aspect of the cervix and additional hypoechoic masslike nodule measures 2.4 x 2.9 x 2.1 cm. This demonstrates internal vascularity. This is separate from the right ovary. Right adnexa: Right ovary contains a hypoechoic follicle. Right ovary measures 3.0 x 1.5 x 2.6 cm. Normal color Doppler flow and arterial and venous waveforms within the ovarian parenchyma. Left adnexa: Left ovary contains a hypoechoic follicle. Left ovary measures 2.7 x 1.4 x 2.2 cm. Normal color Doppler flow and arterial and venous waveforms within the ovarian parenchyma. Other: No free fluid. IMPRESSION: 1. The patient is status post hysterectomy, however, to soft tissue nodules noted in the region of the vaginal cuff/cervix. Differential considerations include fibroids, endometriosis or postsurgical change among other etiologies. Contrast-enhanced MR of the pelvis is recommended along with gynecologic consultation for further characterization. 2. Normal ovaries. The report will be called/faxed according to standard departmental protocol. Electronically signed by: Jose Dill M.D. 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 Lung bases: Lungs and pleural spaces clear. Normal heart size. No pericardial or pleural effusion. Liver: Normal morphology. Well-defined hypodensity in the inferior right hepatic lobe likely hepatic cyst or hamartoma. Patent hepatic vasculature. Biliary: No intrahepatic or extrahepatic biliary ductal dilatation. Normal gallbladder. Pancreas: Normal. Spleen: Normal. Adrenal glands: Normal. Kidneys and ureters: Normal. No hydronephrosis. Bladder: Mild circumferential bladder wall thickening. Pelvic organs: Postsurgical changes of hysterectomy. The cervix may or may not still be intact. Nodularity at the cuff correlates with the ultrasound appearance and is most consistent with chronic scarring and/or blood products (series 3 image 318). Bilateral ovaries are normal. Bowel: Normal appendix. The appendix contains a tiny phlebolith. No bowel obstruction. Peritoneal cavity: No free fluid or intraperitoneal gas. Lymph nodes: No enlarged lymph nodes in the abdomen or pelvis. Vasculature: Aorta and IVC patent and normal in caliber. Abdominal wall: Normal. Musculoskeletal: Normal. IMPRESSION: 1. No appendicitis. Tiny appendicolith noted. 2. Mild circumferential bladder wall thickening could suggest cystitis. Correlate with urinalysis. 3. Postsurgical changes of hysterectomy with nodularity at the vaginal cuff, likely chronic scarring and/or blood products. This is within the normal range for of postsurgical appearance. Normal ovaries. Electronically signed by: Jose Dill M.D. 08/16/2017 9:01 PM Laboratory Results 08/16/17 17:50 Red Blood Count 4.73, Mean Corpuscular Volume 82.5, Mean Corpuscular Hemoglobin 29.6, Mean Corpuscular Hemoglobin Concent 35.9, Mean Platelet Volume 10.1, Neutrophils (%) (Auto) 78.1, Lymphocytes (%) (Auto) 13.7, Monocytes (%) (Auto) 5.5, Eosinophils (%) (Auto) 2.2, Basophils (%) (Auto) 0.3, Neutrophils # (Auto) 9.11, Lymphocytes # (Auto) 1.60, Monocytes # (Auto) 0.64, Eosinophils # (Auto) 0.26, Basophils # (Auto) 0.03 08/16/17 17:50 Test 08/16/17 17:50 08/16/17 22:10 White Blood Count 11.66 K/uL (4.8-10.8) Red Blood Count 4.73 M/uL (4.2-5.4) Hemoglobin 14.0 g/dL (12.0-16.0) Hematocrit 39.0 % (37-47) Mean Corpuscular Volume 82.5 fL (80-100) Mean Corpuscular Hemoglobin 29.6 pg (25-34) Mean Corpuscular Hemoglobin Concent 35.9 g/dl (32-36) Platelet Count 238 K/uL (130-400) Mean Platelet Volume 10.1 fL (7.4-10.4) Neutrophils (%) (Auto) 78.1 % Lymphocytes (%) (Auto) 13.7 % Monocytes (%) (Auto) 5.5 % Eosinophils (%) (Auto) 2.2 % Basophils (%) (Auto) 0.3 % Neutrophils # (Auto) 9.11 K/uL (1.4-6.5) Lymphocytes # (Auto) 1.60 K/uL (1.2-3.4) Monocytes # (Auto) 0.64 K/uL (0.11-0.59) Eosinophils # (Auto) 0.26 K/uL (0-0.5) Basophils # (Auto) 0.03 K/uL (0-0.2) RDW Standard Deviation 38.7 fL (36.4-46.3) RDW Coefficient of Variation 12.8 % (11.5-14.5) Immature Granulocyte % (Auto) 0.2 % Immature Granulocyte # (Auto) 0.02 K/uL (0.00-0.02) Anion Gap 9.0 mmol/L (3-11) Est Creatinine Clear Calc Drug Dose 87.7 ml/min Estimated GFR () 98.1 Estimated GFR (Non- 84.6 BUN/Creatinine Ratio 12.0 (10-20) Calcium Level 9.0 mg/dl (8.5-10.1) Urine Color YELLOW Urine Appearance CLEAR (CLEAR) Urine pH 7.0 (4.5-7.5) Urine Specific [place] > 1.045 (1.000-1.030) Urine Protein NEG (NEG) Urine Glucose (UA) NEG (NEG) Urine Ketones 1+ (NEG) Urine Occult Blood NEG (NEG) Urine Nitrite NEG (NEG) Urine Bilirubin NEG (NEG) Urine Urobilinogen NEG (NEG) Urine Leukocyte Esterase NEG (NEG) Urine Test NEG (NEG) Laboratory results reviewed by me Medications Administered Medications (Trade) Dose Ordered Sig/Silvio Route Start Time Stop Time Status Last Admin Dose Admin Ondansetron HCl (Zofran Inj) 4 mg ONE STAT IV 08/16/17 18:16 08/16/17 18:20 DC 08/16/17 18:27 4 MG Ketorolac Tromethamine (Toradol Inj) 30 mg STK-MED ONCE .ROUTE 08/16/17 18:24 08/16/17 18:25 DC 08/16/17 18:28 15 MG Ciprofloxacin/ Dextrose (Cipro / D5W) 400 mg NOW STAT IV 08/16/17 22:41 08/16/17 22:47 DC 08/16/17 22:57 400 MG Metronidazole (Flagyl / Nss) 500 mg NOW STAT IV 08/16/17 22:41 08/16/17 22:47 DC 08/16/17 22:57 500 MG ED Course 181: The patient was evaluated in room B9. A complete history and physical exam was performed. The patient was seen on 05/30/2017 for RLQ pain also. A pelvis US was performed, and an ovarian cyst was discovered, no evidence of torsion. Additional impressions included: mixed echogenicity cystic and solid lesion with internal vascularity adjacent to the cervix measuring up to 2.5cm, appears similar in size from comparison study done 12/08/2016, however the internal cystic component appears to have progressed and the mural nodularity was not seen on the comparison. This is again nonspecific and would be atypical for an endometrioma and is suspicious for possible cervical neoplasm. Surgical consultation recommended. 1815: Toradol Inj 15mg, Zofran HCl 4mg IV 2015: I reevaluated and updated the patient. Her pain is better. Repeat abdominal exam showed pain to palpation of RLQ, no rebound, and no guarding. Negative for ovarian cyst/torsion. Will attain CT to rule out appendicitis. 2125: CT abdomen showed appendicolith. I spoke to Piyush Gambino - General Mauricio PA-C, [facility]. He will come and evaluate the patient. 2253: I reexamined the patient. Her vital signs are stable. The patient was evaluated at bedside with surgery. We both agree that the patient can either be treated outpatient and follow up for her appendicolith, or can be admitted for observation after receiving IV antibiotics and placed in observation for serial abdominal exams. If the patient's right lower quadrant pain worsens, she develops a fever, or her white count comes elevated the patient can be taken for surgical procedure by general surgery. The patient and decided to stay for observation and receive IV antibiotics. Admission orders placed by general surgery. I discussed the test results and treatment plan with her and her . Discussed the patient's case with Yash Martínez PA-C combustion analyst with [employer] [facility]. The patient will be evaluated for further management. Medical Decision A complete history and physical exam was performed. The patient was seen on for RLQ pain also. A pelvis US was performed, and an ovarian cyst was discovered, no evidence of torsion. Additional impressions included: mixed echogenicity cystic and solid lesion with internal vascularity adjacent to the cervix measuring up to 2.5cm, appears similar in size from comparison study done 12/08/2016, however the internal cystic component appears to have progressed and the mural nodularity was not seen on the comparison. This is again nonspecific and would be atypical for an endometrioma and is suspicious for possible cervical neoplasm. Surgical consultation recommended. I reevaluated and updated the patient. Her pain is better. Repeat abdominal exam showed no pain to palpation of RLQ, no rebound, and no guarding. Negative for ovarian cyst/torsion. Will attain CT to rule out appendicitis. I rechecked the patient. Her vital signs are stable. The patient was evaluated at bedside with surgery. We both agree that the patient can either be treated outpatient and follow up, or can be admitted for observation after receiving IV antibiotics and placed in observation for serial abdominal exams. The patient and decided to stay for inpatient and receive IV antibiotics. Admission orders placed by general surgery. Medication Reconcilliation Current Medication List: was personally reviewed by me Blood Pressure Screening Patient's blood pressure: Elevated blood pressure Blood pressure disposition: Elevated BP felt to be situational Consults Time Called: 2125 Consulting Physician: Piyush Gambino - General Surgery, [place] combustion analyst with [place]. Corbin, [facility] [place] Call: [phone] The patient was evaluated at bedside. Immanuel agrees that the patient can either be treated outpatient and follow up, or can be admitted for observation after receiving IV antibiotics and placed in observation for serial abdominal exams. Discussed the patient's case. The patient will be evaluated for further treatment and disposition. Impression Primary Impression: RLQ abdominal pain Scribe Attestation The scribe's documentation has been prepared under my direction and personally reviewed by me in its entirety. I confirm that the note above accurately reflects all work, treatment, procedures, and medical decision making performed by me. The chart was completed utilizing [employer] Speech voice recognition software. Grammatical errors, random word insertions, pronoun errors, and incomplete sentences are an occasional consequence of this system due to software limitations, ambient noise, and hardware issues. Any formal questions or concerns about the content, text, or information contained within the body of this dictation should be directly addressed to the physician for clarification. Departure Information Dispostion Being Evaluated By Surgeon Prescriptions No Active Prescriptions or Reported Meds Referrals Evie Zarco D.O. (PCP) Patient Instructions [facility]
[2017-08-16 18:33] LABS: BASO % 0.3 %; BASO ABS # 0.03 K/uL (0-0.2); EOS % 2.2 %; EOS ABS # 0.26 K/uL (0-0.5); IG# 0.02 K/uL (0.00-0.02); LYMPH % 13.7 %; MEAN CELL VOLUME 82.5 fL (80-100); MEAN CORPUSCULAR HEMOGLOBIN 29.6 pg (25-34); MEAN CORPUSCULAR HGB CONC 35.9 g/dl (32-36); MEAN PLATELET VOLUME 10.1 fL (7.4-10.4); MONO % 5.5 %; MONO ABS # 0.64 K/uL (0.11-0.59); NEUT % 78.1 %; NEUT ABS # 9.11 K/uL (1.4-6.5); PLATELET COUNT 238 K/uL (130-400); RED CELL DISTRIBUTION WIDTH CV 12.8 % (11.5-14.5); RED CELL DISTRIBUTION WIDTH SD 38.7 fL (36.4-46.3); WHITE BLOOD COUNT 11.66 K/uL (4.8-10.8)
[2017-08-16 18:42] LABS: CREATININE 0.82 mg/dl (0.60-1.20); POTASSIUM 3.3 mmol/L (3.5-5.1)
--- NOTE | 2017-08-16 20:11 | DIAGNOSTIC IMAGING REPORT ---
PELVIC COMPLETE NON OB, TRANSVAG-FEMALE PELVIS CLINICAL HISTORY: 47 years-old Female presenting with RLQ pain hx of ovarian cyst. TECHNIQUE: Real-time grayscale and color and spectral Doppler ultrasound imaging of the pelvis was performed first using a transabdominal probe and subsequently transvaginal for better characterization. COMPARISON: 05/30/2017. FINDINGS: Uterus: Surgically absent. Focal masslike hypoechoic round nodule at the vaginal cuff, measuring 1.4 x 1.2 x 1.4 cm. Additionally, along the right aspect of the cervix and additional hypoechoic masslike nodule measures 2.4 x 2.9 x 2.1 cm. This demonstrates internal vascularity. This is separate from the right ovary. Right adnexa: Right ovary contains a hypoechoic follicle. Right ovary measures 3.0 x 1.5 x 2.6 cm. Normal color Doppler flow and arterial and venous waveforms within the ovarian parenchyma. Left adnexa: Left ovary contains a hypoechoic follicle. Left ovary measures 2.7 x 1.4 x 2.2 cm. Normal color Doppler flow and arterial and venous waveforms within the ovarian parenchyma. Other: No free fluid. IMPRESSION: 1. The patient is status post hysterectomy, however, to soft tissue nodules noted in the region of the vaginal cuff/cervix. Differential considerations include fibroids, endometriosis or postsurgical change among other etiologies. Contrast-enhanced MR of the pelvis is recommended along with gynecologic consultation for further characterization. 2. Normal ovaries. The report will be called/faxed according to standard departmental protocol. Electronically signed by: Jose Dill M.D. 08/16/2017 8:09 PM Dictated Date/Time: 08/16/2017 8:01 PM
[2017-08-16] MEDS ORDERED: OPTIRAY 320 IV PRN (20:45)
--- NOTE | 2017-08-16 21:02 | DIAGNOSTIC IMAGING REPORT ---
ABD/PELVIS IV CONTRAST ONLY CLINICAL HISTORY: 47 years-old Female presenting with rlq pain r/o appy. TECHNIQUE: Multidetector CT of the abdomen and pelvis was performed after the administration of intravenous contrast. IV contrast: 93 mL of Optiray 320. A dose lowering technique was used consistent with the principles of ALARA (as low as reasonably achievable). COMPARISON: Ultrasound performed earlier the same day and CT from 12/08/2016. CT DOSE (mGy.cm): The estimated cumulative dose is 333.92 mGy.cm. 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 Lung bases: Lungs and pleural spaces clear. Normal heart size. No pericardial or pleural effusion. Liver: Normal morphology. Well-defined hypodensity in the inferior right hepatic lobe likely hepatic cyst or hamartoma. Patent hepatic vasculature. Biliary: No intrahepatic or extrahepatic biliary ductal dilatation. Normal gallbladder. Pancreas: Normal. Spleen: Normal. Adrenal glands: Normal. Kidneys and ureters: Normal. No hydronephrosis. Bladder: Mild circumferential bladder wall thickening. Pelvic organs: Postsurgical changes of hysterectomy. The cervix may or may not still be intact. Nodularity at the cuff correlates with the ultrasound appearance and is most consistent with chronic scarring and/or blood products (series 3 image 318). Bilateral ovaries are normal. Bowel: Normal appendix. The appendix contains a tiny phlebolith. No bowel obstruction. Peritoneal cavity: No free fluid or intraperitoneal gas. Lymph nodes: No enlarged lymph nodes in the abdomen or pelvis. Vasculature: Aorta and IVC patent and normal in caliber. Abdominal wall: Normal. Musculoskeletal: Normal. IMPRESSION: 1. No appendicitis. Tiny appendicolith noted. 2. Mild circumferential bladder wall thickening could suggest cystitis. Correlate with urinalysis. 3. Postsurgical changes of hysterectomy with nodularity at the vaginal cuff, likely chronic scarring and/or blood products. This is within the normal range for of postsurgical appearance. Normal ovaries. Electronically signed by: Jose Dill M.D. 08/16/2017 9:01 PM Dictated Date/Time: 08/16/2017 8:53 PM
[2017-08-16] MEDS ORDERED: METRONIDAZOLE 500MG / 100ML NSS IV STA (22:41)
[2017-08-16] MEDS ORDERED: CIPROFLOXACIN 400MG / 200ML D5W IV STA (22:41)
--- NOTE | 2017-08-16 22:55 | Surgery Consultation ---
Consultation Date of Consultation: Aug 16, 2017. Attending Physician: Reason for Consultation: RLQ pain, Appendicolith on CT History of Present Illness Patient is a 47F who presented to the ED this evening with RLQ pain beginning around 1400 today. Reports she has had pain in that area for a few weeks but things got significantly worse today. She has tried taking ibuprofen and tylenol with minimal relief. Reports nausea and 3 episodes of vomiting. Denies hematemesis. She was diagnosed with an ovarian cyst back in May and states her pain feels similar to that. Denies fevers but does feel like she has had intermittent chills throughout the day. Denies recent illness. She has been urinating without trouble. Reports some diarrhea last night but her bowel movements have been normal besides that. Denies blood in stool. PSHx significant for Hysterectomy (cervix and ovaries still present) and laminectomy. She denies use of any blood thinning or anticoagulant medications. She last ate a donut approximately 1230 today without trouble. FHx positive for appendicitis. WBC 11.66. CT abd/pelvis no evidence of appendicitis but there is a tiny appendicolith noted. Normal ovaries, post-surgical changes from hysterectomy and mild bladder wall thickening. Past Medical/Surgical History Medical Problems: (1) Cervical cyst Status: Acute (2) Hematuria Status: Acute (3) Ovarian cyst Status: Acute (4) Pelvic pain Status: Acute (5) Right lower quadrant abdominal pain Status: Acute Family History Diabetes mellitus FH: cancer Hypertension Social History Smoking Status: Never Smoker Marital Status: Housing Status: lives with family Occupation Status: employed Allergies Coded Allergies: Penicillins (Verified Allergy, Unknown, *, 08/16/17) CHILDHOOD REACTION UNKNOWN Home Medications No Active Prescriptions or Reported Meds Current Inpatient Medications Current Inpatient Medications Medications (Trade) Dose Ordered Sig/Silvio Route Start Time Stop Time Status Last Admin Dose Admin Ioversol (Optiray 320) 100 ml UD PRN IV 08/16/17 20:45 08/20/17 20:44 Review of Systems Constitutional: + chills, No fever Respiratory: No cough, No shortness of breath Cardiovascular: No chest pain Abdomen: + pain (RLQ pressure), + nausea, + vomiting (3 episodes today), + constipation Genitourinary - Female: No dysuria Physical Exam Date Time Temp Pulse Resp B/P (MAP) Pulse Ox O2 Delivery O2 Flow Rate FiO2 08/16/17 22:07 56 20 110/68 98 Room Air 08/16/17 20:10 78 20 99/49 98 Room Air 08/16/17 17:41 36.5 62 18 168/91 98 Room Air General Appearance: WD/WN, no apparent distress Head: normocephalic, atraumatic ENT: hearing grossly normal Respiratory/Chest: no respiratory distress, no accessory muscle use Abdomen/GI: soft, no organomegaly, no pulsatile mass, + tenderness (RLQ TTP mild (patient reports it feels more like pressure than pain)) Neurologic/Psych: alert, normal mood/affect, oriented x 3 Skin: normal color, warm/dry Laboratory Results Last 24 Hours Test 08/16/17 17:50 08/16/17 22:10 White Blood Count 11.66 K/uL Red Blood Count 4.73 M/uL Hemoglobin 14.0 g/dL Hematocrit 39.0 % Mean Corpuscular Volume 82.5 fL Mean Corpuscular Hemoglobin 29.6 pg Mean Corpuscular Hemoglobin Concent 35.9 g/dl Platelet Count 238 K/uL Mean Platelet Volume 10.1 fL Neutrophils (%) (Auto) 78.1 % Lymphocytes (%) (Auto) 13.7 % Monocytes (%) (Auto) 5.5 % Eosinophils (%) (Auto) 2.2 % Basophils (%) (Auto) 0.3 % Neutrophils # (Auto) 9.11 K/uL Lymphocytes # (Auto) 1.60 K/uL Monocytes # (Auto) 0.64 K/uL Eosinophils # (Auto) 0.26 K/uL Basophils # (Auto) 0.03 K/uL RDW Standard Deviation 38.7 fL RDW Coefficient of Variation 12.8 % Immature Granulocyte % (Auto) 0.2 % Immature Granulocyte # (Auto) 0.02 K/uL Sodium Level 138 mmol/L Potassium Level 3.3 mmol/L Chloride Level 105 mmol/L Carbon Dioxide Level 24 mmol/L Anion Gap 9.0 mmol/L Blood Urea Nitrogen 10 mg/dl Creatinine 0.82 mg/dl Est Creatinine Clear Calc Drug Dose 87.7 ml/min Estimated GFR () 98.1 Estimated GFR (Non- 84.6 BUN/Creatinine Ratio 12.0 Random Glucose 109 mg/dl Calcium Level 9.0 mg/dl Assessment & Plan RLQ pain, appendicolith on CT pain controlled, no N/V at this time. Discussed findings with patient and Dr. Lopez - No evidence of acute appendicitis at this time. Plan to admit (obs) and recheck labs in the AM. Admit med/surg (obs), NPO, IV cipro, IV Flagyl, IV fluids, Pain medication PRN, Zofran PRN, TEDs. Will discuss findings with Dr. Corbin in AM. Please contact with questions or concerns.
[2017-08-16] MEDS ORDERED: OXYCODONE/ACETAMINOPHEN 5-325 TAB PO PRN (23:00)
[2017-08-16] MEDS ORDERED: HYDROmorphone INJ 1 MG/ML SYR IV PRN (23:00)
[2017-08-16] MEDS ORDERED: ACETAMINOPHEN IV 100 ML IV PRN (23:00)
[2017-08-16] MEDS ORDERED: ONDANSETRON INJ 6 MG in DEXTROSE 5% 50ML 50 ML IV PRN (23:00)
[2017-08-16] MEDS ORDERED: KETOROLAC TROMETHAMINE 15 MG/ML VIAL IV PRN (23:00)
[2017-08-17 00:15] VITALS: BP 136/85; PULSE 64; TEMP 37; O2SAT 100; Ht 175.3 cm; Wt 77.0 kg
[2017-08-17] MEDS ORDERED: IV FLUIDS COMPLETED PRN (00:30)
[2017-08-17] MEDS: SODIUM CHLORIDE 0.9% 1000ML 1,000 ML IV SCH ×2 (00:40→09:08)
[2017-08-17 07:08] VITALS: BP 105/64; PULSE 52; TEMP 36.8; O2SAT 94
[2017-08-17 07:12] LABS: BASO % 0.4 %; BASO ABS # 0.03 K/uL (0-0.2); EOS % 2.3 %; EOS ABS # 0.18 K/uL (0-0.5); HEMATOCRIT 33.2 % (37-47); HEMOGLOBIN 11.8 g/dL (12.0-16.0); IG# 0.03 K/uL (0.00-0.02); LYMPH % 20.7 %; LYMPH ABS # 1.64 K/uL (1.2-3.4); MEAN CELL VOLUME 82.4 fL (80-100); MEAN CORPUSCULAR HEMOGLOBIN 29.3 pg (25-34); MEAN CORPUSCULAR HGB CONC 35.5 g/dl (32-36); MEAN PLATELET VOLUME 9.3 fL (7.4-10.4); MONO % 10.9 %; MONO ABS # 0.86 K/uL (0.11-0.59); NEUT % 65.3 %; NEUT ABS # 5.18 K/uL (1.4-6.5); PLATELET COUNT 184 K/uL (130-400); RED CELL DISTRIBUTION WIDTH CV 12.9 % (11.5-14.5); RED CELL DISTRIBUTION WIDTH SD 39.1 fL (36.4-46.3); WHITE BLOOD COUNT 7.92 K/uL (4.8-10.8)
[2017-08-17] MEDS ORDERED: METRONIDAZOLE / NSS 500 MG in PREMIXED NSS 100 ML IV SCH (08:00)
--- NOTE | 2017-08-17 10:26 | Surgery Progress Note ---
Surgery Progress Note Date of Service Aug 17, 2017. Subjective 47-year-old female admitted with right lower quadrant pain and CT finding of phlebolith in her appendix. This morning she has no pain. Objective Vital Signs: Date Time Temp Pulse Resp B/P (MAP) Pulse Ox O2 Delivery O2 Flow Rate FiO2 08/17/17 08:00 Room Air 08/17/17 07:08 36.8 52 16 105/64 (78) 94 08/17/17 01:59 Room Air 08/17/17 00:15 37.0 64 14 136/85 100 Room Air 08/16/17 23:44 77 20 103/52 98 08/16/17 23:01 36.9 08/16/17 22:07 56 20 110/68 98 Room Air 08/16/17 20:10 78 20 99/49 98 Room Air 08/16/17 17:41 36.5 62 18 168/91 98 Room Air General Appearance: WD/WN, no apparent distress Abdomen: normal bowel sounds, non tender, non distended, soft, no organomegaly , no pulsatile mass Laboratory Results: Results Past 24 Hours Test 08/16/17 17:50 08/16/17 22:10 08/17/17 06:37 Range/Units White Blood Count 11.66 7.92 4.8-10.8 K/uL Red Blood Count 4.73 4.03 4.2-5.4 M/uL Hemoglobin 14.0 11.8 12.0-16.0 g/dL Hematocrit 39.0 33.2 37-47 % Mean Corpuscular Volume 82.5 82.4 80-100 fL Mean Corpuscular Hemoglobin 29.6 29.3 25-34 pg Mean Corpuscular Hemoglobin Concent 35.9 35.5 32-36 g/dl Platelet Count 238 184 130-400 K/uL Mean Platelet Volume 10.1 9.3 7.4-10.4 fL Neutrophils (%) (Auto) 78.1 65.3 % Lymphocytes (%) (Auto) 13.7 20.7 % Monocytes (%) (Auto) 5.5 10.9 % Eosinophils (%) (Auto) 2.2 2.3 % Basophils (%) (Auto) 0.3 0.4 % Neutrophils # (Auto) 9.11 5.18 1.4-6.5 K/uL Lymphocytes # (Auto) 1.60 1.64 1.2-3.4 K/uL Monocytes # (Auto) 0.64 0.86 0.11-0.59 K/uL Eosinophils # (Auto) 0.26 0.18 0-0.5 K/uL Basophils # (Auto) 0.03 0.03 0-0.2 K/uL RDW Standard Deviation 38.7 39.1 36.4-46.3 fL RDW Coefficient of Variation 12.8 12.9 11.5-14.5 % Immature Granulocyte % (Auto) 0.2 0.4 % Immature Granulocyte # (Auto) 0.02 0.03 0.00-0.02 K/uL Sodium Level 138 136-145 mmol/L Potassium Level 3.3 3.5-5.1 mmol/L Chloride Level 105 98-107 mmol/L Carbon Dioxide Level 24 21-32 mmol/L Anion Gap 9.0 3-11 mmol/L Blood Urea Nitrogen 10 7-18 mg/dl Creatinine 0.82 0.60-1.20 mg/dl Est Creatinine Clear Calc Drug Dose 87.7 ml/min Estimated GFR () 98.1 Estimated GFR (Non- 84.6 BUN/Creatinine Ratio 12.0 10-20 Random Glucose 109 70-99 mg/dl Calcium Level 9.0 8.5-10.1 mg/dl Urine Color YELLOW Urine Appearance CLEAR CLEAR Urine pH 7.0 4.5-7.5 Urine Specific Elaine > 1.045 1.000-1.030 Urine Protein NEG NEG Urine Glucose (UA) NEG NEG Urine Ketones 1+ NEG Urine Occult Blood NEG NEG Urine Nitrite NEG NEG Urine Bilirubin NEG NEG Urine Urobilinogen NEG NEG Urine Leukocyte Esterase NEG NEG Urine Test NEG NEG Assessment & Plan Right lower quadrant pain of unclear etiology with incidental finding of phleboliths in her appendix on CT scan, no evidence of appendicitis. No acute surgical intervention indicated. Advance diet to regular Discharge later today if tolerates regular diet Follow-up with PCP as an outpatient
[2017-08-17] MEDS ORDERED: CIPROFLOXACIN / D5W 400 MG in PREMIXED IN D5W 200 ML IV SCH (11:00)
--- NOTE | 2017-08-17 13:11 | Discharge Instructions ---
Discharge Instructions Date of Service Aug 17, 2017. Admission Reason for Admission: Appendicolith, Rlq Abdominal Pain Discharge Discharge Diagnosis / Problem: Appendicolith, RLQ Abdominal Pain Discharge Goals Goal(s): Decrease discomfort, Improve function Activity Recommendations Activity Limitations: as noted below Lifting Limitations: gradually increase as tolerated Exercise/Sports Limitations: gradually increase as tolerated May Resume Sexual Activity: when tolerated Shower/Bathe: no limitations Driving or Machine Use: no limitations . Instructions / Follow-Up Instructions / Follow-Up Please follow-up with your Primary Care Provider after discharge. Dr. Wolf Corbin, [facility] [place] [address] [place] [address] [place] [address] Current Hospital Diet Patient's current hospital diet: Regular Diet Discharge Diet Recommended Diet: Regular Diet Pending Studies Studies pending at discharge: no Medical Emergencies . Who to Call and When: Medical Emergencies: If at any time you feel your situation is an emergency, please call 911 immediately. . Non-Emergent Contact Non-Emergency issues call your: Primary Care Provider Call Non-Emergent contact if: temperature is above 101.5, your pain is not controlled . "Provider Documentation" section prepared by Nina Clancy. .
[2017-08-17 14:34] VITALS: BP 105/64; PULSE 52; TEMP 36.8; O2SAT 94
[2017-08-17 14:54] VITALS: BP 125/78; PULSE 54; TEMP 36.8; O2SAT 100
== END 2017-08-17 15:44 | disposition home or self-care (01) ==
LOC: C.EDB 17:41 → C.MSN 23:04 → ENRESERV 23:22
PROVIDERS: ADMIT Surgery; ATTEND Surgery
DX: R10.31 Right lower quadrant pain (principal); K38.1 Appendicular concretions; Z90.710 Acquired absence of both cervix and uterus; Z88.0 Allergy status to penicillin; Z83.3 Family history of diabetes mellitus; Z82.49 Family history of ischemic heart disease and other diseases of the circulatory system